=== PATIENT | female | born 1955 | race Caucasian/White ===

== ENCOUNTER 2017-10-25 12:42 | Emergency (ER) | payer OTHER ==
[~2017-10-25] VITALS: Ht 165.1 cm; Wt 73.5 kg
[2017-10-25 12:51] VITALS: BP 115/68
[2017-10-25] MEDS ORDERED: PROMETHAZINE HCL 25 MG/ML 1ML IM ONE (13:15)
[2017-10-25] MEDS ORDERED: MEPERIDINE HCL (50 MG/ML) 1 ML VIAL IM ONE (13:15)
== END 2017-10-25 13:59 | disposition home or self-care (01) ==
LOC: ER 12:48
DX: M54.5 Low back pain (principal); G89.29 Other chronic pain; F17.210 Nicotine dependence, cigarettes, uncomplicated; Z88.8 Allergy status to other drugs, medicaments and biological substances
CPT/HCPCS: 93005; 96372; 99284; J2175; J2550

== ENCOUNTER 2018-04-01 15:30 | Emergency (ER) | payer OTHER ==
[~2018-04-01] VITALS: Ht 165.1 cm; Wt 71.2 kg
[2018-04-01 17:03] LABS: Basophils # (auto) 0 uL; Basophils % (auto) 0.3 % (0.0-2.0); Eosinophils # (auto) 0.1 uL; Eosinophils % (auto) 1.8 % (0.0-7.0); Hematocrit 41.3 % (36.0-46.0); Hemoglobin 13.8 g/dL (12.2-16.2); Lymphocytes # (auto) 1.5 uL; Mean Corpuscular Hemoglobin 29.1 pg (28.0-32.0); Mean Corpuscular Hgb Conc. 33.4 g/dL (32.0-36.0); Monocytes # (auto) 0.5 uL; Monocytes % (auto) 7.3 % (0.0-12.0); Neutrophils # (auto) 4.3 uL; Neutrophils % (auto) 67.6 % (37.0-80.0); Platelet Count (auto) 239 10^3/uL (140-450); Red Blood Cells 4.74 10^6/uL (4.0-5.20); Red Cell Distribution Width 13.9 % (11.8-14.3); White Blood Cell 6.3 10^3/uL (4.4-10.8)
[2018-04-01 17:14] LABS: Calcium 9.6 mg/dL (8.5-10.1); Potassium 3.4 mmol/L (3.5-5.1)
[2018-04-01 17:17] LABS: BUN/Creatinine Ratio 12.1; Bilirubin, Total 0.3 mg/dL (0.2-1.0); Total Protein 7.7 g/dL (6.4-8.2)
[2018-04-01 17:40] LABS: Urine Bacteria NONE SEEN /hpf (None Seen); Urine Blood 1+ /uL (Negative); Urine Specific Gravity 1.017 (1.001-1.035); Urine WBC 2 /hpf (0 - 5)
[2018-04-01 18:10] VITALS: BP 116/68
== END 2018-04-01 18:29 | disposition home or self-care (01) ==
LOC: ER 15:30
DX: I89.1 Lymphangitis (principal); F17.210 Nicotine dependence, cigarettes, uncomplicated; Z90.710 Acquired absence of both cervix and uterus; Z85.42 Personal history of malignant neoplasm of other parts of uterus
CPT/HCPCS: 36415; 71046; 80053; 81001; 85025

== ENCOUNTER 2018-07-03 12:16 | Inpatient (IN) | payer OTHER ==
[2018-07-02 20:30] VITALS: BP 121/71
[~2018-07-03] VITALS: Ht 165.1 cm; Wt 72.0 kg
[2018-07-03 13:04] LABS: Urine Bacteria FEW /hpf (None Seen); Urine Blood TRACE /uL (Negative); Urine Specific Gravity 1.003 (1.001-1.035); Urine WBC 1 /hpf (0 - 5)
[2018-07-03 14:05] LABS: Basophils # (auto) 0 uL; Basophils % (auto) 0.3 % (0.0-2.0); Eosinophils # (auto) 0.1 uL; Hematocrit 41.2 % (36.0-46.0); Hemoglobin 13.6 g/dL (12.2-16.2); Lymphocytes # (auto) 1.7 uL; Lymphocytes % (auto) 21.4 % (10.0-50.0); Mean Corpuscular Hgb Conc. 33.1 g/dL (32.0-36.0); Mean Corpuscular Volume 87.6 fL (80.0-100.0); Monocytes # (auto) 0.5 uL; Monocytes % (auto) 6.6 % (0.0-12.0); Neutrophils # (auto) 5.5 uL; Neutrophils % (auto) 70.7 % (37.0-80.0); Nucleated Red Blood Cells % 0.1 %; Platelet Count (auto) 237 10^3/uL (140-450); Red Cell Distribution Width 14.5 % (11.8-14.3); White Blood Cell 7.8 10^3/uL (4.4-10.8)
[2018-07-03 14:19] LABS: Anion Gap 7 (5-15); Blood Urea Nitrogen 8 mg/dL (7-18); Calcium 9.2 mg/dL (8.5-10.1); Carbon Dioxide 27 mmol/L (21-32); Chloride 106 mmol/L (98-107); Glucose 100 mg/dL (74-106); Magnesium 2.5 mg/dL (1.6-2.6); Potassium 3.7 mmol/L (3.5-5.1); Sodium 140 mmol/L (136-145)
[2018-07-03 14:26] LABS: Alanine Aminotransferase 23 U/L (13-56); Alkaline Phosphatase 70 U/L (45-117); Aspartate Aminotransferase 20 U/L (15-37); BUN/Creatinine Ratio 10.8; Bilirubin, Total 0.3 mg/dL (0.2-1.0); GFR African American 102 mL/min; GFR Non-African American 85 mL/min; Total Protein 7.9 g/dL (6.4-8.2)
[2018-07-03] MEDS ORDERED: MORPHINE SULFATE 4 MG/ML SYR/VIAL IV PRN ×2 (18:30)
[2018-07-03] MEDS ORDERED: ACETAMINOPHEN 500 MG TAB PO PRN (18:30)
[2018-07-03] MEDS ORDERED: NITROGLYCERIN 0.4 MG SL TAB SL PRN (18:30)
[2018-07-03] MEDS ORDERED: TEMAZEPAM 15 MG CAP PO PRN (18:30)
[2018-07-03] MEDS ORDERED: LORazepam 0.5 MG TAB PO PRN (18:30)
[2018-07-03] MEDS ORDERED: PROMETHAZINE HCL 25 MG/ML 1ML IV PRN (18:30)
[2018-07-03] MEDS ORDERED: LACTULOSE 20Gm/30ML SOLN PO PRN (18:30)
[2018-07-03] MEDS: SODIUM CHLORIDE 0.9% 1,000 ML IV SCH (18:47)
[2018-07-03] MEDS ORDERED: ALBUTEROL SULF 2.5 MG/0.5ML(0.5%) NEB SOLN NEB PRN (20:00)
--- NOTE | 2018-07-03 20:00 | NUR ---
RECEIVED PATIENT FROM ER VIA STRETCHER, AWAKE, ALERT ORIENTED X4, AMBULATORY, SPEAKS CLEARLY. NO S/S OF RESPIRATORY DISTRESS, DENIES SOB AND CHEST PAIN. WITH IV ON THE RIGHT AC GAUGE 20 RUNNING NS AT 75 ML/HR. SKIN IS INTACT. ORIENTED ON PLAN OF CARE. BED IS LOCKED AND IN LOWEST LEVEL, SIDE RAILS UP X2, CALL LIGHT WITHIN REACH. WILL CONTINUE TO MONITOR
[2018-07-03 20:04] LABS: Alcohol, Urine < 3.0 mg/dL (0-5); Amphetamine Screen, Urine NEGATIVE (NEGATIVE); Barbiturate Scree,Urine NEGATIVE (NEGATIVE); Benzodiazephine Screen, Urine NEGATIVE (NEGATIVE); Cannabinoid Screen, Urine NEGATIVE (NEGATIVE); Cocaine Screen, Urine NEGATIVE (NEGATIVE); Opiate Scree,Urine NEGATIVE (NEGATIVE); Phencyclidine Screen, Urine NEGATIVE (NEGATIVE)
[2018-07-03] MEDS ORDERED: LORazepam 2MG/ML-1ML VIAL IV PRN (21:15)
[2018-07-03] MEDS: HYDROcodone-ACET 5/325MG TAB PO PRN (21:18)
[2018-07-03 21:55] VITALS: BP 116/75
[2018-07-03] MEDS: ATORVASTATIN 20 MG TAB PO SCH (21:58)
[2018-07-03 22:00] VITALS: BP 121/71
[2018-07-03] MEDS ORDERED: ATORVASTATIN 20 MG TAB PO SCH (22:00)
[2018-07-03] MEDS: METOPROLOL TARTRATE 25 MG TAB PO SCH (22:00)
[2018-07-04] MEDS: ALBUTEROL SULF 2.5 MG/0.5ML(0.5%) NEB SOLN NEB SCH ×5 (00:17→23:49)
[2018-07-04] MEDS: IPRATROPIUM BROM 0.5 MG/2.5ML INH SOL NEB SCH ×5 (00:17→23:48)
[2018-07-04] MEDS ORDERED: NITR0.4S29 SL (00:33)
[2018-07-04] MEDS ORDERED: OXY5T PO (00:33)
[2018-07-04] MEDS ORDERED: ASPI81TA27 PO (00:33)
[2018-07-04] MEDS ORDERED: ISOS30TA4 PO (00:33)
[2018-07-04] MEDS ORDERED: GABA-339 PO (00:33)
[2018-07-04] MEDS ORDERED: SIMV-13 PO (00:33)
[2018-07-04] MEDS ORDERED: ALBUAER3 IN (00:33)
[2018-07-04] MEDS ORDERED: CHOL100055 PO (00:33)
--- NOTE | 2018-07-04 01:50 | NUR ---
ROUNDS PATIENT IS AWAKE AND ALERT. NO S/S OF RESPIRATORY DISTRESS, DENIES SOB AND CHEST PAIN. WILL CONTINUE TO MONITOR
[2018-07-04 04:42] VITALS: BP 103/61
[2018-07-04 07:04] LABS: Cholesterol 137 mg/dL (< 200); Triglycerides 95 mg/dL (< 150)
[2018-07-04 07:06] LABS: HDL Cholesterol 52 mg/dL (40-59); LDL Cholesterol 67 mg/dL (< 100)
--- NOTE | 2018-07-04 07:20 | NUR ---
OPENING SHIFT NOTE ASSUMED CARE OF PATIENT FROM STEWARD/STEWARDESS NIGHT RN MELBA. PATIENT IS AWAKE AND ALERT X2. PATIENT HAS NO S/S OF DISTRESS/SOB OR PAIN. INSTRUCTED PATIENT ON POC, PATIENT VERBALIZED UNDERSTANDING. BED IS IN LOWEST POSITION WITH SIDE RAILS RAISED X2, BED WHEELS LOCKED, AND CALL LIGHT WITHIN REACH. WILL CONTINUE TO MONITOR.
--- NOTE | 2018-07-04 07:32 | NUR ---
CARE ENDORSED TO AM SHIFT RN
[2018-07-04 07:42] VITALS: BP 106/65
--- NOTE | 2018-07-04 07:44 | NUR ---
PATIENT OWN MEDICATION SENT TO PHARMACY. PATIENT WITH POM WRIST BAND
[2018-07-04 09:00] VITALS: BP 106/65
[2018-07-04] MEDS: NITROGLYCERIN 0.2MG/HR TOPICAL PATCH TD SCH (10:00)
[2018-07-04] MEDS: METOPROLOL TARTRATE 25 MG TAB PO SCH ×2 (10:00→22:00)
[2018-07-04] MEDS: ENOXAPARIN SOD 40 MG/0.4 ML SYRINGE SC SCH (10:47)
[2018-07-04] MEDS: ASPirin 81 mg TAB PO SCH (10:47)
[2018-07-04] MEDS: PANTOPRAZOLE 40 MG TAB PO SCH (10:48)
[2018-07-04] MEDS: HYDROcodone-ACET 5/325MG TAB PO PRN (10:48)
[2018-07-04] MEDS: SODIUM CHLORIDE 0.9% 1,000 ML IV SCH ×2 (10:50→21:10)
[2018-07-04 13:00] VITALS: BP 107/64
[2018-07-04 17:08] VITALS: BP 107/67
--- NOTE | 2018-07-04 18:56 | NUR ---
CLOSING SHIFT NOTE ENDORSED CARE TO BAND LEADER CLARK PIPER. PATIENT HAS NO S/S OF DISTRESS/SOB OR PAIN AT THIS TIME.
[2018-07-04 21:54] VITALS: BP 99/64
[2018-07-04] MEDS: ATORVASTATIN 20 MG TAB PO SCH (22:32)
--- NOTE | 2018-07-04 23:51 | NUR ---
RT NOTE WENT TO GIVE PT 0000 TX AND PT STATED THAT SHE DIDNT WANT THE TX DUE TO THE LAST TX GIVING HER THE SHAKES.
--- NOTE | 2018-07-05 02:02 | NUR ---
Rounds Patient in bed asleep with no signs of distress/sob/pain. Will continue to monitor.
[2018-07-05] MEDS: HYDROcodone-ACET 5/325MG TAB PO PRN (04:54)
[2018-07-05 05:06] VITALS: BP 117/55
[2018-07-05] MEDS: ALBUTEROL SULF 2.5 MG/0.5ML(0.5%) NEB SOLN NEB SCH ×4 (06:48→23:52)
[2018-07-05] MEDS: IPRATROPIUM BROM 0.5 MG/2.5ML INH SOL NEB SCH ×4 (06:48→23:52)
--- NOTE | 2018-07-05 07:10 | NUR ---
Endorsed care to day shift RN. Patient in bed awake with no signs of distress/sob/pain.
--- NOTE | 2018-07-05 07:35 | NUR ---
OPENING NOTE ASSUMED CARE OF PT. PT IS SITTING ON BED, HOB HIGH-FOWLERS. A&O X4. PT ON ROOM AIR, O2 SATURATION 100%. NO SIGNS OF SOB/DISTRESS NOTED. PT ON TELE #35, HR 61. SAFETY PRECAUTIONS IN PLACE INCLUDING, BED SET ON LOWEST POSITION/LOCKED. BEDSIDE RAILS UP X2. CALL LIGHT LIGHT WITHIN REACH. INSTRUCTED PT TO CALL FOR ASSISTANCE. DISCUSSED POC WITH PT. PT VERBALIZED UNDERSTANDING. WILL CONTINUE TO MONITOR Q 1HR AND PRN.
[2018-07-05 08:00] VITALS: BP 107/63
[2018-07-05] MEDS: NITROGLYCERIN 0.2MG/HR TOPICAL PATCH TD SCH (10:00)
[2018-07-05] MEDS: ENOXAPARIN SOD 40 MG/0.4 ML SYRINGE SC SCH (10:00)
[2018-07-05] MEDS: METOPROLOL TARTRATE 25 MG TAB PO SCH ×2 (10:00→21:45)
[2018-07-05] MEDS: ASPirin 81 mg TAB PO SCH (10:05)
[2018-07-05] MEDS: PANTOPRAZOLE 40 MG TAB PO SCH (10:05)
[2018-07-05] MEDS: SODIUM CHLORIDE 0.9% 1,000 ML IV SCH ×2 (10:07→23:50)
--- NOTE | 2018-07-05 11:57 | NUR ---
PT REFUSED MED NEB TX AT THIS TIME. PT IN NO RESPIRATORY DISTRESS NOTED. NO SOB ON RA. PT HAS VISITORS AT BEDSIDE AND SHE STATED SHE WILL TAKE THE 1800 TX. WILL CONTINUE TO MONITOR PT.
[2018-07-05 12:30] VITALS: BP 108/71
[2018-07-05 17:00] VITALS: BP 111/59
--- NOTE | 2018-07-05 19:03 | NUR ---
ENDORSED CARE TO CLARK PIPER.
--- NOTE | 2018-07-05 19:05 | NUR ---
Opening Shift Note Assumed care of patient, awake and alert. No S/S of distress/SOB or pain. Instructed on POC and to call for assist PRN, will continue to monitor for changes Q1hr and PRN. Side rails up x2. Bed locked in lowest position. Call light within reach. Family at bedside.
[2018-07-05] MEDS: ATORVASTATIN 20 MG TAB PO SCH (21:44)
[2018-07-05 22:00] VITALS: BP_SYST 11; BP_SYST 111; BP_DIAS 72
--- NOTE | 2018-07-05 23:52 | NUR ---
PT REFUSED MED NEB TX AT THIS TIME. PT DENIES ANY RESPIRATORY DISTRESS. NO SHORTNESS OF BREATH NOTED. WILL CONTINUE WITH NEXT SCHEDULED TX.
--- NOTE | 2018-07-06 01:28 | NUR ---
Rounds Patient in bed asleep with breathing even and unlabored. Will continue to monitor.
[2018-07-06 05:00] VITALS: BP 91/52
[2018-07-06] MEDS: IPRATROPIUM BROM 0.5 MG/2.5ML INH SOL NEB SCH ×3 (06:34→19:30)
[2018-07-06] MEDS: ALBUTEROL SULF 2.5 MG/0.5ML(0.5%) NEB SOLN NEB SCH ×3 (06:34→19:30)
--- NOTE | 2018-07-06 07:05 | NUR ---
Endorsed care to day shift RN. Patient in bed awake with no signs of distress/sob/pain.
--- NOTE | 2018-07-06 07:42 | NUR ---
OPENING PATIENT OUT OF BED, CONFIRMED AMA SIGNED TO SMOKE, WILL F/U WITH ASSESSMENT CXR, HEAD CT, CAROTID DOPPLER NEGATIVE UA: TRACE OF BLOOD, FEW BACTERIA TROPONIN: NEGATIVE TOXICOLOGY SCREEN: NEGATIVE PATIENT IS PENDING STRESS TEST TOMORROW Saturday07/07/18
[2018-07-06 08:00] VITALS: BP 104/66
[2018-07-06] MEDS: ENOXAPARIN SOD 40 MG/0.4 ML SYRINGE SC SCH (10:00)
--- NOTE | 2018-07-06 10:08 | NUR ---
LUBRICATION SUPERVISOR DR. Angela GARCIA
[2018-07-06] MEDS: ASPirin 81 mg TAB PO SCH (11:21)
[2018-07-06] MEDS: PANTOPRAZOLE 40 MG TAB PO SCH (11:21)
[2018-07-06] MEDS: METOPROLOL TARTRATE 25 MG TAB PO SCH ×2 (11:21→22:00)
[2018-07-06] MEDS: NITROGLYCERIN 0.2MG/HR TOPICAL PATCH TD SCH (11:23)
[2018-07-06 12:00] VITALS: BP 125/82
[2018-07-06] MEDS: SODIUM CHLORIDE 0.9% 1,000 ML IV SCH (13:23)
[2018-07-06 15:26] VITALS: BP 125/82
[2018-07-06 17:00] VITALS: BP 99/62
[2018-07-06 22:00] VITALS: BP 100/62
[2018-07-06] MEDS: ATORVASTATIN 20 MG TAB PO SCH (23:21)
--- NOTE | 2018-07-07 02:21 | NUR ---
Rounds Patient in bed asleep with no signs of distress/sob/pain. Will continue to monitor.
[2018-07-07] MEDS: SODIUM CHLORIDE 0.9% 1,000 ML IV SCH ×2 (02:30→17:55)
[2018-07-07 05:00] VITALS: BP 102/60
--- NOTE | 2018-07-07 05:15 | NUR ---
IV insertion IV access obtained, via clean sterile technique by inserting 20 gauge catheter on left hand after 1 attempt. IV secured properly. No trauma to site. Patient tolerated well.
[2018-07-07] MEDS: IPRATROPIUM BROM 0.5 MG/2.5ML INH SOL NEB SCH ×4 (06:23→18:59)
[2018-07-07] MEDS: ALBUTEROL SULF 2.5 MG/0.5ML(0.5%) NEB SOLN NEB SCH ×4 (06:23→18:59)
--- NOTE | 2018-07-07 07:05 | NUR ---
Endorsed care to day shift RN. Patient in bed asleep with breathing even and unlabored.
--- NOTE | 2018-07-07 07:48 | NUR ---
OPENING PATIENT AWAKE, IN BED, BED IN LOWEST POSITION, CALL LIGHT WITHIN REACH. AMA TO SMOKE, PATIENT IS ALERT AND AMBULATORY. PENDING STRESS TEST TODAY-PER THE ORDER OF SENIOR SQL DEVELOPER MD ADAMES EEG TEST TODAY- PER THE ORDER OF NEUROLOGIST MD WADDELL BRAIN MRI CHRONIC CHANGES WILL F/U WITH MORNING ASSESSMENT
[2018-07-07] MEDS ORDERED: ADENOSINE 60 MG in GIVE UN-DILUTED 0 ML IV STA (08:25)
[2018-07-07 08:42] VITALS: BP 106/65
[2018-07-07] MEDS: PANTOPRAZOLE 40 MG TAB PO SCH (09:42)
[2018-07-07] MEDS: ENOXAPARIN SOD 40 MG/0.4 ML SYRINGE SC SCH (09:46)
[2018-07-07] MEDS: ASPirin 81 mg TAB PO SCH (09:46)
[2018-07-07] MEDS: METOPROLOL TARTRATE 25 MG TAB PO SCH ×2 (09:46→22:45)
[2018-07-07] MEDS: NITROGLYCERIN 0.2MG/HR TOPICAL PATCH TD SCH (09:46)
[2018-07-07 12:03] VITALS: BP 118/74
--- NOTE | 2018-07-07 12:04 | NUR ---
1200 med neb tx not administered due to pt not in room at procedure. dario perez aware.
[2018-07-07 12:24] VITALS: BP 104/66
--- NOTE | 2018-07-07 12:51 | NUR ---
NUTRITION ASSESSMENT NOTES Please refer to link notes of nutrition screen form filed under the intervention section of the plan of care for further details. Est. Needs: 1450 kcal to 1800 kcal (20-25 kcal/kgBW), 58 gms to 72 gms pro (0.8-1.0 gms/kgBW). Will continue to monitor pertinent labs and reassess nutrient need prn Thank you. Addendum: 07/07/18 at [address] Amended: Links added.
--- NOTE | 2018-07-07 14:50 | NUR ---
EEG COMPLETED AT BEDSIDE.
--- NOTE | 2018-07-07 15:10 | NUR ---
CHAPERONED DR. GARCIA INTO PTS ROOM
[2018-07-07 16:42] VITALS: BP 107/65
--- NOTE | 2018-07-07 19:10 | NUR ---
OPENING SHIFT NOTE ASSUMED CARE OF PATIENT FROM DAY SHIFT RN [place]. PATIENT IS SITTING UP OUT OF BED TALKING WITH FRIENDS AT BEDSIDE. RESPIRATIONS ARE EVEN AND UNLABORED WITH NO S/S OF DISTRESS OR PAIN AT THIS TIME. BED IS LOW, LOCKED, CALL LIGHT IS IN REACH, AND NONSKID SOCKS ARE ON. PATIENT HAS AMA TO SMOKE AND WAS EDUCATED ON RISKS/BENEFITS TO SMOKING CESSATION. PATIENT VERBALIZED UNDERSTANDING. INSTRUCTED POC AND TO CALL PRN. WILL CONTINUE TO MONITOR.
[2018-07-07 22:00] VITALS: BP 97/61
[2018-07-07] MEDS: ATORVASTATIN 20 MG TAB PO SCH (22:45)
[2018-07-08] MEDS: IPRATROPIUM BROM 0.5 MG/2.5ML INH SOL NEB SCH ×3 (00:33→11:32)
[2018-07-08] MEDS: ALBUTEROL SULF 2.5 MG/0.5ML(0.5%) NEB SOLN NEB SCH ×3 (00:34→11:32)
[2018-07-08 05:00] VITALS: BP 103/57
[2018-07-08] MEDS: SODIUM CHLORIDE 0.9% 1,000 ML IV SCH (05:10)
--- NOTE | 2018-07-08 07:02 | NUR ---
CLOSING SHIFT NOTE PATIENT IS RESTING IN BED WATCHING THE MORNING NEWS WITH EVEN AND UNLABORED RESPIRATIONS. NO S/S OF DISTRESS OR PAIN NOTED AT THIS TIME. BED IS IN LOWEST POSITION, LOCKED, CALL LIGHT IS IN REACH, AND NON SKID SOCKS ARE ON. CARE TRANSFERRED TO DAY SHIFT RN.
--- NOTE | 2018-07-08 07:45 | NUR ---
Opening Shift Note Assumed care of patient, awake and alert. No S/S of distress/SOB or pain. Patient requests to be disconnected from IV to walk around. Instructed on POC and to call for assist PRN, will continue to monitor for changes Q1hr and PRN.
[2018-07-08 08:38] VITALS: BP 90/61
--- NOTE | 2018-07-08 09:23 | NUR ---
CHAPERONED DR. GARCIA INTO PTS ROOM
--- NOTE | 2018-07-08 09:25 | NUR ---
ROUNDING Dr Angela Wong rounding on patient. Discussed plan of care, including test results and plans for discharge. Patient states she does not need new prescriptions, patient states she has medications ASA 81mg and simvastatin at home. Patient encouraged to f/u with Dr Varghese and PCP in 1-2 weeks. Betina Vasquez notified of patients discharge and request for new PCP.
--- NOTE | 2018-07-08 09:32 | NUR ---
IV removal IV DC'd with clean sterile technique, catheter fully intact. Pressure dressing applied to site. Patient tolerated well. NOTE: Patient requests to have IV to right wrist removed. Patient has IV in left arm and discharge order.
[2018-07-08] MEDS: NITROGLYCERIN 0.2MG/HR TOPICAL PATCH TD SCH (10:00)
[2018-07-08] MEDS: ENOXAPARIN SOD 40 MG/0.4 ML SYRINGE SC SCH (10:00)
[2018-07-08] MEDS: METOPROLOL TARTRATE 25 MG TAB PO SCH (10:00)
[2018-07-08] MEDS: ASPirin 81 mg TAB PO SCH (10:42)
[2018-07-08] MEDS: PANTOPRAZOLE 40 MG TAB PO SCH (10:42)
[2018-07-08] MEDS: HYDROcodone-ACET 5/325MG TAB PO PRN (10:43)
--- NOTE | 2018-07-08 11:12 | NUR ---
DISCHARGE PLANNING Betina Vasquez spoke with patient in regards to PCP and F/U care.
--- NOTE | 2018-07-08 12:16 | NUR ---
Discharge instructions given as ordered. Encourage to follow up with PMD as instructed. All questions and concerns addressed. Patient verbalized understanding. Medication reconciliation form completed and copy given to patient. Home medications held in Pharmacy returned to patient. IV removed with catheter intact, pressure dressing applied. Telemetry unit returned to ICU. Patient ambulated off unit with all personal belongings, accompanied by staff and family member. No distress noted at time of departure.
== END 2018-07-08 12:22 | disposition home or self-care (01) | DRG 303 ==
LOC: ER 12:16 → TELE 18:33 → TELE-CENTR 20:00
PROVIDERS: ADMIT Internal Medicine; ATTEND Family Medicine
DX: I25.10 Atherosclerotic heart disease of native coronary artery without angina pectoris (principal); J44.9 Chronic obstructive pulmonary disease, unspecified; R47.81 Slurred speech; G89.29 Other chronic pain; G62.9 Polyneuropathy, unspecified; M54.5 Low back pain; I10 Essential (primary) hypertension; E78.00 Pure hypercholesterolemia, unspecified; Z96.641 Presence of right artificial hip joint; E78.5 Hyperlipidemia, unspecified; F17.210 Nicotine dependence, cigarettes, uncomplicated; I34.0 Nonrheumatic mitral (valve) insufficiency; Z79.82 Long term (current) use of aspirin; Z79.899 Other long term (current) drug therapy; Z85.42 Personal history of malignant neoplasm of other parts of uterus; Z86.73 Personal history of transient ischemic attack (TIA), and cerebral infarction without residual deficits; Z82.49 Family history of ischemic heart disease and other diseases of the circulatory system; Z90.710 Acquired absence of both cervix and uterus; Z88.8 Allergy status to other drugs, medicaments and biological substances
CPT/HCPCS: 36415; 70450; 70551; 71046; 78452; 80053; 80061; 80307; 81001; 82550; 82607; 83735; 83880; 84484; 85025; 85379; 85652; 86141; 93005; 93017; 93306; 93886; 94640; 94761; 95819; G0378; J0153

== ENCOUNTER 2018-09-21 12:12 | Emergency (ER) | payer OTHER ==
[~2018-09-21] VITALS: Ht 167.6 cm; Wt 68.0 kg
[~2018-09-21 12:12] MED LIST: ALBUAER3 IN; ASPI81TA27 PO; CHOL100055 PO; GABA-339 PO; ISOS30TA4 PO; NITR0.4S29 SL; OXY5T PO; SIMV-13 PO
[2018-09-21 13:59] LABS: Basophils # (auto) 0 uL; Basophils % (auto) 0.6 % (0.0-2.0); Eosinophils # (auto) 0.1 uL; Eosinophils % (auto) 1.4 % (0.0-7.0); Hematocrit 41.6 % (36.0-46.0); Hemoglobin 13.8 g/dL (12.2-16.2); Lymphocytes # (auto) 1.6 uL; Lymphocytes % (auto) 23.7 % (10.0-50.0); Mean Corpuscular Hgb Conc. 33.1 g/dL (32.0-36.0); Mean Corpuscular Volume 87.5 fL (80.0-100.0); Monocytes # (auto) 0.5 uL; Monocytes % (auto) 7.7 % (0.0-12.0); Neutrophils # (auto) 4.5 uL; Neutrophils % (auto) 66.6 % (37.0-80.0); Platelet Count (auto) 238 10^3/uL (140-450); Red Blood Cells 4.76 10^6/uL (4.0-5.20); Red Cell Distribution Width 14.1 % (11.8-14.3); White Blood Cell 6.7 10^3/uL (4.4-10.8)
[2018-09-21 14:13] LABS: INR 0.92 (0.9-1.15); Partial Thromboplastin Time 24.7 sec (23.64-32.05)
[2018-09-21 14:20] LABS: Anion Gap 6 (5-15); Blood Urea Nitrogen 13 mg/dL (7-18); Calcium 9.2 mg/dL (8.5-10.1); Carbon Dioxide 28 mmol/L (21-32); Chloride 108 mmol/L (98-107); Glucose 87 mg/dL (74-106); Potassium 3.8 mmol/L (3.5-5.1); Sodium 142 mmol/L (136-145)
[2018-09-21 14:26] LABS: Alanine Aminotransferase 19 U/L (13-56); Alkaline Phosphatase 69 U/L (45-117); Aspartate Aminotransferase 16 U/L (15-37); BUN/Creatinine Ratio 15.9; Bilirubin, Total 0.3 mg/dL (0.2-1.0); GFR African American 91 mL/min; GFR Non-African American 75 mL/min; Total Protein 7.8 g/dL (6.4-8.2)
[2018-09-21 14:40] VITALS: BP 111/59
== END 2018-09-21 14:31 | disposition home or self-care (01) ==
LOC: ER 12:12 → EDBD 12:12 → ER 14:31
DX: R07.89 Other chest pain (principal); I25.10 Atherosclerotic heart disease of native coronary artery without angina pectoris; J44.9 Chronic obstructive pulmonary disease, unspecified; E78.5 Hyperlipidemia, unspecified; F17.210 Nicotine dependence, cigarettes, uncomplicated; Z88.8 Allergy status to other drugs, medicaments and biological substances; Z79.82 Long term (current) use of aspirin; Z79.899 Other long term (current) drug therapy; Z90.710 Acquired absence of both cervix and uterus
CPT/HCPCS: 36415; 71045; 80053; 83880; 84484; 85025; 85610; 85730; 93005

== ENCOUNTER 2019-08-28 10:16 | Inpatient (IN) | payer OTHER ==
[~2019-08-28] VITALS: Ht 165.1 cm; Wt 72.3 kg
[~2019-08-28 10:16] MED LIST changes: +ASPI-404 PO; -ASPI81TA27 PO
[2019-08-28] MEDS ORDERED: ASPirin 81 mg TAB PO ONE (11:00)
[2019-08-28] MEDS ORDERED: NITROGLYCERIN 0.4 MG SL TAB SL ONE (11:00)
[2019-08-28 11:26] LABS: Basophils # (auto) 0 10 ^3/uL (0-0.2); Basophils % (auto) 0.4 % (0.0-2.0); Eosinophils # (auto) 0.1 10 ^3/uL (0-0.8); Eosinophils % (auto) 1.6 % (0.0-7.0); Hematocrit 39.8 % (36.0-46.0); Hemoglobin 13.3 g/dL (12.2-16.2); Lymphocytes # (auto) 1.5 10 ^3/uL (0.4-5.4); Mean Corpuscular Hemoglobin 28.3 pg (28.0-32.0); Mean Corpuscular Hgb Conc. 33.3 g/dL (32.0-36.0); Mean Corpuscular Volume 85.1 fL (80.0-100.0); Monocytes # (auto) 0.5 10 ^3/uL (0-1.3); Monocytes % (auto) 6.5 % (0.0-12.0); Neutrophils # (auto) 4.8 10 ^3/uL (1.6-8.6); Neutrophils % (auto) 69.5 % (37.0-80.0); Platelet Count (auto) 252 10^3/uL (140-450); Red Blood Cells 4.68 10^6/uL (4.0-5.20); Red Cell Distribution Width 14.2 % (11.8-14.3); White Blood Cell 6.9 10^3/uL (4.4-10.8)
[2019-08-28 11:44] LABS: Albumin 3.8 g/dL (3.4-5.0); Anion Gap 7 (5-15); Blood Urea Nitrogen 13 mg/dL (7-18); Calcium 9.1 mg/dL (8.5-10.1); Carbon Dioxide 26 mmol/L (21-32); Chloride 104 mmol/L (98-107); Glucose 109 mg/dL (74-106); Potassium 4.1 mmol/L (3.5-5.1); Sodium 137 mmol/L (136-145)
[2019-08-28 11:49] LABS: Alanine Aminotransferase 18 U/L (13-56); Alkaline Phosphatase 65 U/L (45-117); Aspartate Aminotransferase 19 U/L (15-37); BUN/Creatinine Ratio 14.4; Bilirubin, Total 0.4 mg/dL (0.2-1.0); GFR African American 81 mL/min; GFR Non-African American 67 mL/min; Total Protein 7.6 g/dL (6.4-8.2)
[2019-08-28 12:38] LABS: Urine Bacteria NONE SEEN /hpf (None Seen); Urine Blood Negative /uL (Negative); Urine Specific Gravity 1.004 (1.001-1.035); Urine WBC 2 /hpf (0 - 5)
[2019-08-28] MEDS ORDERED: METOPROLOL SUCCINATE XL 50 MG TAB PO ONE (14:45)
[2019-08-28] MEDS ORDERED: NITROGLYCERIN 0.4 MG SL TAB SL PRN ×2 (14:45)
[2019-08-28] MEDS ORDERED: ONDANSETRON HCL 4 MG/2 ML VIAL IV PRN (14:45)
[2019-08-28] MEDS ORDERED: LORazepam 0.5 MG TAB PO PRN (14:45)
[2019-08-28] MEDS ORDERED: IPRATROPIUM BROM 0.5 MG/2.5ML INH SOL NEB ONE (14:45)
[2019-08-28] MEDS ORDERED: LISINOPRIL 10 MG TAB PO ONE (14:45)
[2019-08-28] MEDS ORDERED: ALBUTEROL SULF 2.5 MG/0.5ML(0.5%) NEB SOLN NEB PRN (14:45)
[2019-08-28] MEDS ORDERED: cefTRIAXone 1GM/50ML D5W 50 ML IV ONE (14:45)
[2019-08-28] MEDS ORDERED: IPRATROPIUM BROM 0.5 MG/2.5ML INH SOL NEB PRN (14:45)
[2019-08-28] MEDS ORDERED: ALBUTEROL SULF 2.5 MG/0.5ML(0.5%) NEB SOLN NEB ONE (14:45)
[2019-08-28] MEDS ORDERED: ZOLPIDEM TARTRATE 5 MG TAB PO PRN (14:45)
[2019-08-28] MEDS ORDERED: MORPHINE SULF INJ 2 MG/ML SYRINGE 1ML IV PRN (14:45)
[2019-08-28] MEDS ORDERED: ISOSORBIDE MONONITRATE ER 60 MG TAB PO ONE (14:45)
[2019-08-28] MEDS ORDERED: hydrALAZINE HCL 20 MG/ML VL IV PRN (14:45)
[2019-08-28] MEDS ORDERED: NICOTINE 21MG/24 HR TOPICAL PATCH TD ONE (16:00)
[2019-08-28 18:10] VITALS: BP 115/68
--- NOTE | 2019-08-28 18:10 | NUR ---
Telemetry admit from ER ANNETTASHAGGY admitted to Telemetry unit after SBAR received from CLARK Hernandez. Patient oriented to NOAM GLEZ RN primary RN, unit, room, bed, and unit policies regarding patient care and visiting hours. Patient now on continuous telemetry monitoring, tele box #[id number] and telemetry reading on arrival to unit is 80bpm NSR. Patient weighed by bedscale and encouraged to call if they need something. Bed in lowest/locked position, bed rails up x2, call light within reach. All questions and concerns addressed, patient verbalized understanding.
[2019-08-28] MEDS ORDERED: ASPI81CH43 PO (18:46)
[2019-08-28] MEDS ORDERED: SIMV-13 PO (18:46)
[2019-08-28] MEDS ORDERED: NITR0.4S29 SL (18:46)
[2019-08-28] MEDS ORDERED: OXY5T PO (18:46)
[2019-08-28] MEDS ORDERED: ISOS60TA24 PO (18:46)
[2019-08-28] MEDS ORDERED: CHOL20007 PO (18:46)
[2019-08-28] MEDS ORDERED: MAGN400C3 PO (18:46)
[2019-08-28] MEDS ORDERED: OMEG1360 PO (18:46)
[2019-08-28] MEDS ORDERED: CYA100I PO (18:46)
--- NOTE | 2019-08-28 19:15 | NUR ---
PT ASSESSED, NO SOB NOTED. SAT 96% ON RA, BS DIMINISHED BILATERALLY
[2019-08-28] MEDS ORDERED: ISOS30TA4 PO (20:32)
[2019-08-28] MEDS: GABAPENTIN 100 MG CAP PO SCH ×2 (20:34→22:34)
[2019-08-28] MEDS: ATORVASTATIN 20 MG TAB PO SCH (20:50)
[2019-08-28 20:56] VITALS: BP 115/68
[2019-08-28 21:44] VITALS: BP 97/55
[2019-08-28] MEDS: methylPREDNISolone SOD SUCC 40 MG/ML VL IV SCH (22:49)
[2019-08-29] MEDS: FUROSEMIDE 20 MG/2 ML VIAL IV SCH ×2 (05:19→18:00)
[2019-08-29] MEDS: methylPREDNISolone SOD SUCC 40 MG/ML VL IV SCH ×3 (05:23→22:15)
[2019-08-29 05:29] VITALS: BP 95/58
[2019-08-29 06:44] LABS: Basophils # (auto) 0 10 ^3/uL (0-0.2); Basophils % (auto) 0.2 % (0.0-2.0); Eosinophils # (auto) 0 10 ^3/uL (0-0.8); Eosinophils % (auto) 0.1 % (0.0-7.0); Hematocrit 41.8 % (36.0-46.0); Hemoglobin 14.1 g/dL (12.2-16.2); Mean Corpuscular Hemoglobin 28.9 pg (28.0-32.0); Mean Corpuscular Hgb Conc. 33.7 g/dL (32.0-36.0); Mean Corpuscular Volume 85.8 fL (80.0-100.0); Monocytes # (auto) 0.1 10 ^3/uL (0-1.3); Monocytes % (auto) 1.1 % (0.0-12.0); Neutrophils # (auto) 5.5 10 ^3/uL (1.6-8.6); Neutrophils % (auto) 83.6 % (37.0-80.0); Nucleated Red Blood Cells % 0.1 %; Platelet Count (auto) 262 10^3/uL (140-450); Red Blood Cells 4.88 10^6/uL (4.0-5.20); Red Cell Distribution Width 14.3 % (11.8-14.3); White Blood Cell 6.6 10^3/uL (4.4-10.8)
[2019-08-29 07:00] LABS: INR 1.04 (0.9-1.15); Partial Thromboplastin Time 26.5 sec (23.64-32.05)
[2019-08-29 07:09] LABS: Chloride 106 mmol/L (98-107); Potassium 4.5 mmol/L (3.5-5.1); Sodium 139 mmol/L (136-145)
[2019-08-29 07:20] LABS: Alanine Aminotransferase 19 U/L (13-56); Albumin 3.6 g/dL (3.4-5.0); Alkaline Phosphatase 68 U/L (45-117); Anion Gap 8 (5-15); Aspartate Aminotransferase 18 U/L (15-37); BUN/Creatinine Ratio 22.5; Bilirubin, Total 0.4 mg/dL (0.2-1.0); Blood Urea Nitrogen 20 mg/dL (7-18); Calcium 9.2 mg/dL (8.5-10.1); Carbon Dioxide 25 mmol/L (21-32); Cholesterol 175 mg/dL (< 200); GFR African American 82 mL/min; GFR Non-African American 68 mL/min; Glucose 164 mg/dL (74-106); HDL Cholesterol 69 mg/dL (40-59); LDL Cholesterol 88 mg/dL (< 100); Magnesium 2.6 mg/dL (1.6-2.6); Phosphorus 3.2 mg/dL (2.5-4.90); Total Protein 7.6 g/dL (6.4-8.2); Triglycerides 45 mg/dL (< 150)
[2019-08-29 08:00] VITALS: BP 109/67
--- NOTE | 2019-08-29 08:00 | NUR ---
ASSESSMENT NOTE PT IS ALERT ORIENTED X4, RESTING IN BED COMFORTABLY, ABLE TO VERBALIS HER NEEDS, SELF REPOSITION, DENIES CHEST PAIN OR SHORTNESS OF BREATH, AMBULATE NEEDED, CALL LIGHT WITHIN REACH
[2019-08-29] MEDS: ENOXAPARIN SOD 40 MG/0.4 ML SYRINGE SC SCH (08:51)
[2019-08-29] MEDS: NICOTINE 21MG/24 HR TOPICAL PATCH TD SCH (08:51)
[2019-08-29] MEDS: DOCUSATE SOD 100 MG CAP PO SCH (08:52)
[2019-08-29] MEDS: LISINOPRIL 10 MG TAB PO SCH (08:53)
[2019-08-29] MEDS: ASPirin 81 mg TAB PO SCH (08:53)
[2019-08-29] MEDS: ISOSORBIDE MONONITRATE ER 60 MG TAB PO SCH (08:54)
[2019-08-29 09:00] VITALS: BP 106/63
[2019-08-29] MEDS ORDERED: cefTRIAXone 1GM/50ML D5W 50 ML IV SCH (09:00)
[2019-08-29] MEDS ORDERED: AZITHROMYCIN 500MG/ 250ML 250 ML IV SCH (10:00)
[2019-08-29] MEDS ORDERED: ENOXAPARIN SOD 40 MG/0.4 ML SYRINGE SC SCH (10:00)
[2019-08-29] MEDS ORDERED: METOPROLOL SUCCINATE XL 50 MG TAB PO SCH (10:00)
[2019-08-29 13:00] VITALS: BP 94/49
--- NOTE | 2019-08-29 13:50 | NUR ---
POULTRY PATHOLOGIST CONSULT DR BOOTH AT BED SIDE FOLLOWING UP ON PT, OBTAINING HISTORY AND PHYSICAL FROM PT
[2019-08-29] MEDS: GABAPENTIN 100 MG CAP PO SCH ×2 (14:26→22:15)
--- NOTE | 2019-08-29 14:58 | NUR ---
Respiratory note: PATIENT ASSESSED FOR PRN MED-NEB TX; TX NOT INDICATED AT THIS TIME PATIENT IS IN NO ACUTE RESPIRATORY DISTRESS AND DENIES NEED. PATIENT INSTRUCTED TO CALL FOR RT IF SHE FEELS THE NEED FOR TX AT A LATER TIME. SPO2 95% R/A
[2019-08-29 17:00] VITALS: BP 97/55
--- NOTE | 2019-08-29 17:00 | NUR ---
LOW BLOOD PRESSURE PT SUSTAINED LOW BLOOD PRESSURE SINCE AM BP MEDS ARE GIVEN, DR BOOTH MADE AWARE, NEW ORDERS OBTAIN
--- NOTE | 2019-08-29 18:27 | NUR ---
PT CONTINUE STABLE, CONTINUE MONITORING
--- NOTE | 2019-08-29 19:25 | NUR ---
Respiratory note: ASSESSED PT FOR PRN TX PT WAS AWAKE AND ALERT, NO RESP DISTRESS NOTED. HR 76, RR 16, SPO2 98% ON ROOM AIR. BS ARE CLEAR, NO INDICATION FOR TX AT THIS TIME. PT KNOWS TO HAVE RT PAGED IF TX IS NEEDED.
--- NOTE | 2019-08-29 20:10 | NUR ---
open note assumed care of pt. upon entering room pt awake, alert and oriented x4 pt is out of bed, speaking to A bed. pt on room air with no distress noted or expressed. pt denies any pain at this time. pt updated on plan of care. bed locked, low and 2x rails up. pt call light in reach, this nurse to round q1hr and prn. this nurse encouraged pt to call as needed.
[2019-08-29 22:00] VITALS: BP 92/54
[2019-08-29] MEDS: ATORVASTATIN 20 MG TAB PO SCH (22:15)
[2019-08-30 05:00] VITALS: BP 90/56
[2019-08-30] MEDS: FUROSEMIDE 20 MG/2 ML VIAL IV SCH (06:00)
[2019-08-30] MEDS: methylPREDNISolone SOD SUCC 40 MG/ML VL IV SCH (06:28)
[2019-08-30] MEDS: GABAPENTIN 100 MG CAP PO SCH (06:28)
--- NOTE | 2019-08-30 07:17 | NUR ---
Respiratory note: HR 69, RR 14, SPO2 99% ON RA, BS CLEAR AND DIMINISHED. PRN MED NEB TX NOT INDICATED AT THIS TIME. NO SIGNS OR SYMPTOMS OF RESPIRATORY DISTRESS NOTED AT THIS TIME.PT INFORMED TO HIT CALL BUTTON IF FEELING SOB OR WHEEZING
[2019-08-30 08:00] VITALS: BP 90/56
[2019-08-30 09:00] VITALS: BP 111/71
[2019-08-30] MEDS: DOCUSATE SOD 100 MG CAP PO SCH (09:16)
[2019-08-30] MEDS: NICOTINE 21MG/24 HR TOPICAL PATCH TD SCH (09:16)
[2019-08-30] MEDS: ASPirin 81 mg TAB PO SCH (09:17)
[2019-08-30] MEDS: ENOXAPARIN SOD 40 MG/0.4 ML SYRINGE SC SCH (09:17)
[2019-08-30] MEDS ORDERED: METOPROLOL SUCCINATE XL 50 MG TAB PO SCH (10:00)
[2019-08-30] MEDS: LISINOPRIL 10 MG TAB PO SCH (10:00)
[2019-08-30] MEDS: ISOSORBIDE MONONITRATE ER 60 MG TAB PO SCH (10:00)
--- NOTE | 2019-08-30 10:34 | NUR ---
PAGE DR BOOTH TO OBTAIN CARDIO CLEARANCE NOTE
--- NOTE | 2019-08-30 10:43 | NUR ---
DR BOOTH CALLED BACK, MADE AWARE THAT PT BP IS CONTINUE LOW, SBP IS 111, SAID ITS OKAY TO HOLD BP MEDS, PT IS CLEAR TO GO HOME, NEED TO CHECK BP AT HOME DAILY AND FOLLOW UP WITH HER ELECTRIC REFRIGERATOR SERVICER RAMÍREZ WITT BEFORE OCTOBER< PT HAS APPOINTMENT IN OCTOBER>
--- NOTE | 2019-08-30 10:44 | NUR ---
DR OBOTH ADDED PT CAN GO HOME, AND HE WILL DECTATE HS NOTES SOON
[2019-08-30 11:45] VITALS: BP 111/71
--- NOTE | 2019-08-30 12:15 | NUR ---
PT HAS [employer], ABLE TO TAKE OWN BP WITH ROOM SATURATION DAILY, IT GET SENT WIRELESS TO HER HOME HEALTH NURSE
--- NOTE | 2019-08-30 12:20 | NUR ---
Discharge instructions given as ordered. Encourage to follow up with PMD as instructed. All questions and concerns addressed. Patient verbalized understanding. Medication reconciliation form completed and copy given to patient . IV removed with catheter intact, pressure dressing applied. Telemetry unit returned to ICU. Patient ambulated to vehicle via wheelchair with all personal belongings, accompanied by staff and family member. No distress noted at time of departure.
== END 2019-08-30 12:20 | disposition home or self-care (01) | DRG 191 ==
LOC: ER 10:16 → TELE 10:17 → TELE-CENTR 18:01
PROVIDERS: ADMIT Hospitalist; ATTEND Hospitalist
DX: J44.1 Chronic obstructive pulmonary disease with (acute) exacerbation (principal); I16.9 Hypertensive crisis, unspecified; N12 Tubulo-interstitial nephritis, not specified as acute or chronic; R07.89 Other chest pain; E78.00 Pure hypercholesterolemia, unspecified; F17.210 Nicotine dependence, cigarettes, uncomplicated; I10 Essential (primary) hypertension; E78.5 Hyperlipidemia, unspecified; G62.9 Polyneuropathy, unspecified; I25.10 Atherosclerotic heart disease of native coronary artery without angina pectoris; Z79.82 Long term (current) use of aspirin; Z79.899 Other long term (current) drug therapy; Z82.49 Family history of ischemic heart disease and other diseases of the circulatory system; Z82.5 Family history of asthma and other chronic lower respiratory diseases; Z85.42 Personal history of malignant neoplasm of other parts of uterus; Z85.828 Personal history of other malignant neoplasm of skin; Z90.710 Acquired absence of both cervix and uterus; Z88.5 Allergy status to narcotic agent; Z71.6 Tobacco abuse counseling
CPT/HCPCS: 36415; 71045; 80053; 80061; 81001; 83036; 83735; 83880; 84100; 84484; 85025; 85610; 85730; 87086; 93005; 94640; 96365; G0378; J0696

== ENCOUNTER 2021-09-13 09:02 | Emergency (ER) | payer OTHER ==
[~2021-09-13] VITALS: Ht 165.1 cm; Wt 73.9 kg
[~2021-09-13 09:02] MED LIST changes: -ALBUAER3 IN; -ASPI-404 PO; +ASPI81CH43 PO; -CHOL100055 PO; -GABA-339 PO; +ISOS1TAB28 PO; -ISOS30TA4 PO
[2021-09-13] MEDS ORDERED: FLUORESCEIN SOD OPTH TEST STRIP LEFTEYE ONE (10:15)
[2021-09-13] MEDS ORDERED: MORPHINE SULFATE INJECTION 2 MG/ML SYRG IM ONE ×2 (10:15→13:45)
[2021-09-13] MEDS ORDERED: ONDANSETRON ODT 4 MG TAB PO ONE (10:15)
[2021-09-13] MEDS ORDERED: TETRACAINE HCL 0.5% OPTH(EYE) SOLN 4ML LEFTEYE ONE (10:15)
[2021-09-13 14:30] VITALS: BP 146/70
[2021-09-13] MEDS ORDERED: ACE3T PO (16:04)
== END 2021-09-13 16:25 | disposition home or self-care (01) ==
LOC: ER 09:02
DX: R51.9 Headache, unspecified (principal); B02.8 Zoster with other complications; J44.9 Chronic obstructive pulmonary disease, unspecified; E78.5 Hyperlipidemia, unspecified; F17.210 Nicotine dependence, cigarettes, uncomplicated; Z90.710 Acquired absence of both cervix and uterus
CPT/HCPCS: 96372; 99284; J2270; Q0162